=== PATIENT | male | born 1965 | race Caucasian/White ===

== ENCOUNTER 2019-07-19 20:00 | Outpatient (CLI) | payer OTHER, SELFPAY | END 2019-07-19 20:01 | disposition home or self-care (01) | LOC: SLEEP 07-20 08:47 | PROVIDERS: Family Provider Nurse Practitioner Family; PCP Nurse Practitioner Family; Referring Provider Nurse Practitioner Family; Visit Provider Nurse Practitioner Family | DX: G47.33 Obstructive sleep apnea (adult) (pediatric) (principal); R09.02 Hypoxemia | CPT/HCPCS: 95810; 95811 ==

== ENCOUNTER 2024-02-09 12:45 | Outpatient (CLI) | payer BC, SELFPAY ==
--- NOTE | 2024-02-09 12:45 | USCV_ITS ---
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 95.0 Triphasic Triphasic 78.0 SFA Prox 99.0 Triphasic Triphasic 80.0 SFA Mid 84.0 Triphasic Triphasic 79.0 SFA Dist 60.0 Triphasic Triphasic 60.0 POP 68.0 Triphasic Triphasic 95.0 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
== END 2024-02-09 12:46 | disposition home or self-care (01) ==
PROVIDERS: Family Provider Nurse Practitioner Family; PCP Internal Medicine; Visit Provider Psychiatry & Neurology Neurology
DX: I65.23 Occlusion and stenosis of bilateral carotid arteries (principal); R09.89 Other specified symptoms and signs involving the circulatory and respiratory systems
CPT/HCPCS: 93925